=== PATIENT | male | born 1990 | race Caucasian/White ===

== ENCOUNTER 2020-03-07 04:50 | Emergency (ER) | payer OTHER ==
[~2020-03-07] VITALS: Ht 185.4 cm; Wt 70.3 kg
[~2020-03-07 04:50] MED LIST: PERCOCET 5-3251 EACH PO; ZOFRAN ODT4 MG PO
[2020-03-07 05:54] LABS: ABSOLUTE EOSINOPHILS 0.1 thou/uL (0.0-0.7); ABSOLUTE LYMPHOCYTES 1.2 thou/uL (0.8-5.3); ABSOLUTE MONOCYTES 0.3 thou/uL (0.0-1.2); ABSOLUTE NEUTROPHILS 6.7 thou/uL (1.6-8.1); BASOPHILS 0.5 %; EOSINOPHILS 0.6 %; HEMATOCRIT 45.7 % (42.0-52.0); HEMOGLOBIN 16.5 gm/dL (14.0-18.0); LYMPHOCYTES 14.6 %; MCH 33.5 pg (26.0-34.0); MCV 92.8 fL (80.0-100.0); MONOCYTES 3.2 %; MPV 8.4 fl. (7.2-11.1); NUCLEATED RBCS 0 /100WBC; PLATELET COUNT* 215 thou/uL (150-400); POLYS 81.1 %; RBC 4.92 mil/uL (4.50-6.00); WBC 8.3 thou/uL (4.0-11.0)
[2020-03-07 06:05] LABS: CALCIUM 8.8 mg/dL (8.5-10.1); POTASSIUM 3.6 mmol/L (3.5-5.1)
[2020-03-07 06:09] LABS: ALBUMIN 4.3 g/dL (3.4-5.0); MAGNESIUM 1.6 mg/dL (1.8-2.4); TOTAL BILIRUBIN 0.6 mg/dL (<0.1-1.0); TOTAL PROTEIN 7.9 g/dL (6.4-8.2)
[2020-03-07] MEDS ORDERED: REGLAN 10 MG TA10 MG PO (06:45)
[2020-03-07 06:49] LABS: URINE BLOOD NEGATIVE (Negative); URINE CLARITY CLEAR; URINE COLOR YELLOW; URINE GLUCOSE-RANDOM NEGATIVE (Negative); URINE KETONES TRACE (Negative); URINE LEUKOCYTES NEGATIVE (Negative); URINE NITRITE NEGATIVE (Negative); URINE PROTEIN 2+ (Negative); URINE SPECIFIC GRAVITY >= 1.030 (1.005-1.030)
[2020-03-07 06:50] LABS: ICTOTEST (BILI CONFIRMATORY) Negative (Negative); URINE BILIRUBIN 1+ (Negative)
[2020-03-07 06:57] LABS: BACTERIA None Seen /HPF (None Seen); CASTS None Seen /LPF (None Seen); MUCUS >6 Heavy strn/LPF (None Seen); SQUAMOUS 0-3 Few /LPF (0-3); URINE RBC 0-2 Rare /HPF (0-2); URINE WBC 0-5 Rare /HPF (0-5)
[2020-03-07 06:58] LABS: CRYSTALS None Seen /LPF (None Seen)
[2020-03-07 07:01] LABS: AMP/METHAMP Negative (Negative); BARBITURATES Negative (Negative); BENZODIAZEPINES Negative (Negative); COCAINE Negative (Negative); METHADONE Negative (Negative); OPIATES Negative (Negative); PCP Negative (Negative); THC POSITIVE (Negative)
[2020-03-07 08:39] VITALS: BP 155/86
--- NOTE | 2020-03-10 12:25 | EKG ---
[place] [address] ELECTROCARDIOGRAM REPORT Name: ED LAMBERT Room: [facility]#: [id number] Admission: 03/07/20 Attend Phys: Discharge: 03/07/20 Date of : 86 Date of Service: 03/07/20 0503 Report #: [id number] THIS REPORT FOR: //name// [facility] ED Test Date: 2020-03-07 Test Time: 05:03:57 Pat Name: ED LAMBERT Department: Room: Gender: Material Hauler: ID : [id number] Requested By: Wanda Duff Order Number: [id number] MD: Alan Gibbons Measurements Intervals [place] Rate: 74 P: 74 DC: 141 QRS: 74 QRSD: 103 T: 56 QT: 378 QTc: 420 Interpretive Statements Sinus rhythm RSR' in V1 or V2, probably normal variant ST elevation suggests early repolarization No previous ECG available for comparison Electronically Signed On 03-07-2020 11:03:32 CDT by Alan Gibbons [email or web address] <ELECTRONICALLY SIGNED> By: Alan Gibbons MD, [facility] 03/07/20 1103 0503 0503 Alan Gibbons MD, [facility] /EPI
== END 2020-03-07 08:41 | disposition home or self-care (01) ==
LOC: M.ERS 04:50
PROVIDERS: Emergency Medicine
DX: K29.20 Alcoholic gastritis without bleeding (principal); E83.42 Hypomagnesemia; R11.2 Nausea with vomiting, unspecified; Z79.899 Other long term (current) drug therapy